=== PATIENT | female | born 1945 | race Caucasian/White ===

== ENCOUNTER 2024-10-04 10:45 | Inpatient (IN) | payer BC, OTHER ==
[~2024-10-04] VITALS: Ht 165.1 cm; Wt 88.5 kg
[2024-10-04 12:15] LABS: BASOPHILS % (AUTO) 0.3 % (0.0-2.0); EOSINOPHILS % (AUTO) 0.4 % (0.0-7.0); HEMATOCRIT 37.9 % (31.2-41.9); HEMOGLOBIN 12.5 g/dL (10.9-14.3); LYMPHOCYTES # (AUTO) 0.6 K/uL (0.8-4.8); LYMPHOCYTES % (AUTO) 5.5 % (20.5-51.5); MEAN CORPUSCULAR HEMOGLOBIN 28.2 uug (24.7-32.8); MEAN CORPUSCULAR HGB CONC 33 g/dL (32.3-35.6); MEAN CORPUSCULAR VOLUME 85.4 fL (75.5-95.3); MONOCYTES # (AUTO) 0.5 K/uL (0.1-1.30); MONOCYTES % (AUTO) 4.5 % (0.0-11.0); NEUTROPHILS # (AUTO) 10.2 K/uL (1.8-8.9); NEUTROPHILS % (AUTO) 89.3 % (38.5-71.5); PLATELET COUNT (AUTO) 185 K/uL (179-408); RED BLOOD CELL COUNT(AUTO) 4.43 MIL/uL (3.63-4.92); RED CELL DISTRIBUTION WIDTH 14.8 % (12.3-17.7); WHITE BLOOD COUNT (AUTO) 11.4 K/uL (3.8-11.8)
[2024-10-04] MEDS: IV NORMAL SALINE 1000 ML BAG IV ONE (12:20)
[2024-10-04 12:24] LABS: ALANINE AMINOTRANSFERASE 21 U/L (14-59); ALBUMIN 3.5 g/dL (3.4-5.0); ALKALINE PHOSPHATASE 101 U/L (50-136); ASPARTATE AMINOTRANSFERASE 16 U/L (15-37); BILIRUBIN,DIRECT 0.1 mg/dL (0.0-0.2); BILIRUBIN,TOTAL 0.6 mg/dL (0.2-1.0); CALCIUM 8.7 mg/dL (8.5-10.1); CARBON DIOXIDE 25 mmol/L (21-32); CHLORIDE 105 mmol/L (98-107); GLUCOSE 146 mg/dL (74-106); POTASSIUM 3.5 mmol/L (3.5-5.1); SODIUM SERUM 141 mmol/L (136-145); TOTAL PROTEIN, SERUM 7.8 g/dL (6.4-8.2); UREA NITROGEN, BLOOD 19 mg/dL (7-18)
[2024-10-04 12:28] LABS: THYROID STIMULATING HORMONE 51.434 mIU/mL (0.358-3.740)
[2024-10-04 12:30] LABS: LACTIC ACID 2.9 mmol/L (0.4-2.0)
[2024-10-04 12:38] LABS: DIFFERENTIAL COMMENT 1
[2024-10-04] MEDS ORDERED: HALOPERIDOL LACTATE 5 MG/1 ML VIAL ONE (12:40)
[2024-10-04] MEDS ORDERED: diphenhydrAMINE 50 MG/1 ML VIAL ONE (12:40)
[2024-10-04] MEDS ORDERED: LORAZEPAM 2 MG/1 ML VIAL ONE (12:41)
[2024-10-04] MEDS: LORAZEPAM 2 MG/1 ML VIAL IV ONE (12:46)
[2024-10-04] MEDS: HALOPERIDOL LACTATE 5 MG/1 ML VIAL IV ONE (12:46)
[2024-10-04] MEDS: diphenhydrAMINE 50 MG/1 ML VIAL IV ONE (12:46)
[2024-10-04] MEDS ORDERED: SWABABLE VALVE TRANSFER SET EA MC ONE (12:47)
[2024-10-04] MEDS ORDERED: IV NORMAL SALINE 250 ML IV ONE (12:47)
[2024-10-04] MEDS ORDERED: IOHEXOL 350 100 ML INFUS..BTL ONE (12:47)
[2024-10-04 12:54] LABS: *BILIRUBIN,URIN NEGATIVE (NEGATIVE); *BLOOD, URINE NEGATIVE (NEGATIVE); *CLARITY,URINE CLEAR (CLEAR); *COLOR,URINE YELLOW (YELLOW); *KETONES,URINE NEGATIVE (NEGATIVE); *PROTEIN,URINE NEGATIVE (NEGATIVE); *UROBILINOGEN,URINE 0.2 E.U./dl (NORMAL); LEUKOCYTE ESTERASE ,URINE NEGATIVE (NEGATIVE); NITRITE, URINE NEGATIVE (NEGATIVE); UGLUCOSE NEGATIVE (NEGATIVE)
[2024-10-04] MEDS ORDERED: HYDROCORTISONE SOD SUCCINATE 100 MG/2 ML VIAL IV ONE (14:50)
[2024-10-04] MEDS: HYDROCORTISONE SOD SUCCINATE 100 MG/2 ML VIAL IV ONE (15:00)
[2024-10-04] MEDS: CYANOCOBALAMIN 1000 MCG/ML VIAL IM ONE (15:00)
[2024-10-04] MEDS: LEVOTHYROXINE SODIUM 100 MCG VIAL IV ONE (15:21)
[2024-10-04] MEDS: IV D5/ 0.9% NACL 1,000 ML IV ONE (16:27)
[2024-10-04] MEDS ORDERED: ONDANSETRON 4 MG/2 ML VIAL IV PRN (16:30)
[2024-10-04] MEDS ORDERED: CEFTRIAXONE /D5W 50ML IVPB **ER PYXIS IV ONE (18:33)
[2024-10-04] MEDS: CEFTRIAXONE 1 G in IV DEXTROSE 5% 50 ML IV SCH (18:42)
[2024-10-04] MEDS ORDERED: AZITHROMYCIN 500MG/ D5W 250ML IVPB **ER PYXIS ONLY IV ONE (19:24)
[2024-10-04] MEDS: AZITHROMYCIN IV 500 MG in IV DEXTROSE 5% 250 ML IV SCH (19:33)
[2024-10-04] MEDS ORDERED: ACETAMINOPHEN 325 MG TABLET ONE (22:14)
[2024-10-04] MEDS ORDERED: DEXTROSE 50% 50 ML DISP.SYRIN IV PRN (22:30)
[2024-10-04] MEDS ORDERED: INSULIN REGULAR, HUMAN 1000 UNIT/10 ML VIAL ONE (22:40)
[2024-10-04] MEDS ORDERED: ENOXAPARIN SODIUM 40 MG/0.4 ML DISP.SYRIN SQ ONE (22:40)
[2024-10-04] MEDS: INSULIN REGULAR, HUMAN 1000 UNIT/10 ML VIAL SQ PRN (22:45)
[2024-10-04] MEDS: ENOXAPARIN SODIUM 40 MG/0.4 ML DISP.SYRIN SQ SCH (22:46)
[2024-10-05] MEDS ORDERED: LEVOTHYROXINE SODIUM 75 MCG TABLET ONE (07:01)
[2024-10-05] MEDS: LEVOTHYROXINE SODIUM 75 MCG TABLET PO SCH (07:09)
[2024-10-05] MEDS: BLOOD SUGAR DIAGNOSTIC 1 EACH STRIP VI SCH (07:36)
[2024-10-05 08:07] LABS: BASOPHILS % (AUTO) 0.4 % (0.0-2.0); EOSINOPHILS # (AUTO) 0.1 K/uL (0.0-0.7); EOSINOPHILS % (AUTO) 0.5 % (0.0-7.0); HEMATOCRIT 31.4 % (31.2-41.9); HEMOGLOBIN 10.5 g/dL (10.9-14.3); LYMPHOCYTES # (AUTO) 1.1 K/uL (0.8-4.8); LYMPHOCYTES % (AUTO) 10.4 % (20.5-51.5); MEAN CORPUSCULAR HGB CONC 34 g/dL (32.3-35.6); MEAN CORPUSCULAR VOLUME 86.5 fL (75.5-95.3); MONOCYTES # (AUTO) 0.9 K/uL (0.1-1.30); MONOCYTES % (AUTO) 8.3 % (0.0-11.0); NEUTROPHILS # (AUTO) 8.7 K/uL (1.8-8.9); NEUTROPHILS % (AUTO) 80.4 % (38.5-71.5); PLATELET COUNT (AUTO) 159 K/uL (179-408); RED BLOOD CELL COUNT(AUTO) 3.63 MIL/uL (3.63-4.92); RED CELL DISTRIBUTION WIDTH 14.8 % (12.3-17.7); WHITE BLOOD COUNT (AUTO) 10.8 K/uL (3.8-11.8)
[2024-10-05 08:15] LABS: DIFFERENTIAL COMMENT 1
[2024-10-05 08:46] LABS: CALCIUM 7.6 mg/dL (8.5-10.1); CARBON DIOXIDE 27 mmol/L (21-32); CHLORIDE 108 mmol/L (98-107); CREATININE 0.9 mg/dL (0.6-1.3); GLUCOSE 174 mg/dL (74-106); MAGNESIUM 1.8 mg/dL (1.8-2.4); PHOSPHOROUS 2.3 mg/dL (2.5-4.9); POTASSIUM 2.9 mmol/L (3.5-5.1); SODIUM SERUM 144 mmol/L (136-145); UREA NITROGEN, BLOOD 14 mg/dL (7-18)
[2024-10-05 08:48] LABS: THYROID STIMULATING HORMONE 24.621 mIU/mL (0.358-3.740)
[2024-10-05] MEDS ORDERED: POTASSIUM BICARBONATE/CIT AC 25 MEQ TABLET.EFF ONE (09:21)
[2024-10-05] MEDS ORDERED: HYDROCORTISONE SOD SUCCINATE 100 MG/2 ML VIAL IV ONE (09:21)
[2024-10-05] MEDS: HYDROCORTISONE SOD SUCCINATE 100 MG/2 ML VIAL IV SCH (09:26)
[2024-10-05] MEDS: POTASSIUM BICARBONATE/CIT AC 25 MEQ TABLET.EFF PO ONE (09:26)
[2024-10-05] MEDS ORDERED: LEVOTHYROXINE SODIUM 100 MCG VIAL IV ONE (09:29)
[2024-10-05] MEDS: LEVOTHYROXINE SODIUM 100 MCG VIAL IV SCH (09:43)
[2024-10-05] MEDS: NEUTRA PHOS PACKET PO ONE (17:20)
[2024-10-05] MEDS: BENZOCAINE/MENTH/CETYLPYRD LOZENGE MM PRN (17:20)
[2024-10-05 19:48] VITALS: BP 148/77; TEMP 97.9; O2SAT 96
[2024-10-05] MEDS: AZITHROMYCIN IV 500 MG in IV DEXTROSE 5% 250 ML IV SCH (20:36)
[2024-10-05] MEDS: IV NS 1000 ML 1,000 ML IV PRN (20:41)
[2024-10-06 01:18] VITALS: BP 157/83; TEMP 97.7; O2SAT 98
[2024-10-06] MEDS: ACETAMINOPHEN 325 MG TABLET PO PRN (04:08)
[2024-10-06 05:06] VITALS: BP 145/74; TEMP 97.4; O2SAT 93
[2024-10-06] MEDS: LEVOTHYROXINE SODIUM 125 MCG TABLET PO SCH (06:52)
[2024-10-06 07:01] LABS: CALCIUM 7.7 mg/dL (8.5-10.1); CARBON DIOXIDE 28 mmol/L (21-32); CHLORIDE 107 mmol/L (98-107); CREATININE 0.7 mg/dL (0.6-1.3); GLUCOSE 132 mg/dL (74-106); PHOSPHOROUS 2.9 mg/dL (2.5-4.9); POTASSIUM 3.2 mmol/L (3.5-5.1); SODIUM SERUM 143 mmol/L (136-145); UREA NITROGEN, BLOOD 15 mg/dL (7-18)
[2024-10-06 07:40] VITALS: BP 139/60; TEMP 98.5; O2SAT 99
[2024-10-06] MEDS: POTASSIUM CHLORIDE 20 MEQ TAB.PRT.SR PO ONE (10:45)
[2024-10-06 11:42] VITALS: BP 148/78; TEMP 97.9; O2SAT 96
[2024-10-06 15:32] VITALS: BP 139/76; TEMP 98.2; O2SAT 96
[2024-10-06 19:42] VITALS: BP 162/79; TEMP 98; O2SAT 96
[2024-10-06] MEDS: AZITHROMYCIN 250 MG TABLET PO SCH (20:47)
[2024-10-07 04:07] VITALS: O2SAT 96
[2024-10-07 07:41] VITALS: BP 164/88; TEMP 98; O2SAT 95
[2024-10-07 08:34] LABS: BASOPHILS # (AUTO) 0.1 K/UL (0.0-0.2); BASOPHILS % (AUTO) 1.2 % (0.0-2.0); EOSINOPHILS # (AUTO) 0.4 K/uL (0.0-0.7); EOSINOPHILS % (AUTO) 5.4 % (0.0-7.0); HEMATOCRIT 30.8 % (31.2-41.9); HEMOGLOBIN 10.4 g/dL (10.9-14.3); LYMPHOCYTES # (AUTO) 1.3 K/uL (0.8-4.8); LYMPHOCYTES % (AUTO) 17.8 % (20.5-51.5); MEAN CORPUSCULAR HEMOGLOBIN 28.7 uug (24.7-32.8); MEAN CORPUSCULAR HGB CONC 34 g/dL (32.3-35.6); MEAN CORPUSCULAR VOLUME 85.5 fL (75.5-95.3); MONOCYTES # (AUTO) 0.7 K/uL (0.1-1.30); MONOCYTES % (AUTO) 9.3 % (0.0-11.0); NEUTROPHILS # (AUTO) 4.7 K/uL (1.8-8.9); NEUTROPHILS % (AUTO) 66.3 % (38.5-71.5); PLATELET COUNT (AUTO) 178 K/uL (179-408); RED BLOOD CELL COUNT(AUTO) 3.61 MIL/uL (3.63-4.92); RED CELL DISTRIBUTION WIDTH 14.4 % (12.3-17.7); WHITE BLOOD COUNT (AUTO) 7.1 K/uL (3.8-11.8)
[2024-10-07 08:39] LABS: DIFFERENTIAL COMMENT 1
[2024-10-07 08:56] LABS: CALCIUM 8.2 mg/dL (8.5-10.1); CARBON DIOXIDE 28 mmol/L (21-32); CHLORIDE 111 mmol/L (98-107); CREATININE 0.8 mg/dL (0.6-1.3); GLUCOSE 129 mg/dL (74-106); MAGNESIUM 2.2 mg/dL (1.8-2.4); PHOSPHOROUS 2.9 mg/dL (2.5-4.9); POTASSIUM 3.7 mmol/L (3.5-5.1); SODIUM SERUM 146 mmol/L (136-145); UREA NITROGEN, BLOOD 20 mg/dL (7-18)
[2024-10-07 12:27] VITALS: BP 170/86; TEMP 97.3; O2SAT 97
[2024-10-07 12:30] VITALS: O2SAT 97
[2024-10-07] MEDS ORDERED: AZIT250T13 PO (12:43)
[2024-10-07] MEDS ORDERED: LEVO150T8 PO (12:43)
[2024-10-07] MEDS: hydrALAZINE HCL 20 MG/1 ML VIAL IV PRN (17:01)
[2024-10-07 19:58] VITALS: BP 184/84; TEMP 94.6; O2SAT 96
[2024-10-07 20:35] VITALS: BP 178/87; TEMP 98.3; O2SAT 95
[2024-10-07] MEDS: METOPROLOL TARTRATE 50 MG TABLET PO ONE (21:33)
[2024-10-08 03:32] VITALS: O2SAT 97
[2024-10-08 05:38] VITALS: BP 169/84; TEMP 98.1; O2SAT 96
[2024-10-08 08:00] VITALS: BP 165/83; TEMP 98.2; O2SAT 96
[2024-10-08] MEDS ORDERED: LOSA100T3 PO (12:00)
[2024-10-08] MEDS ORDERED: AMLO5TAB4 PO (12:00)
[2024-10-08 12:21] VITALS: BP 157/89
[2024-10-08] MEDS: AMLODIPINE 10 MG TABLET PO SCH (12:21)
[2024-10-08] MEDS: LOSARTAN POTASSIUM 50 MG TABLET PO SCH (12:21)
== END 2024-10-08 13:30 | DRG 643 ==
LOC: ER 10:45 → EDBD 10:45 → MEDSURG3 17:40 → TRANSITION 17:40 → UNDOADMIN 17:40 → TELE3 10-05 15:46 → MEDSURG3 10-06 08:56 → MEDSURG1 10-07 02:40
PROVIDERS: ADMIT Nurse Practitioner Acute Care; ATTEND Nurse Practitioner Acute Care
DX: E03.9 Hypothyroidism, unspecified (principal); G93.41 Metabolic encephalopathy; E87.20 Acidosis, unspecified; D68.59 Other primary thrombophilia; G91.2 (Idiopathic) normal pressure hydrocephalus; E86.0 Dehydration; E66.01 Morbid (severe) obesity due to excess calories; Z68.32 Body mass index [BMI] 32.0-32.9, adult; E87.6 Hypokalemia; E11.9 Type 2 diabetes mellitus without complications; M25.552 Pain in left hip
CPT/HCPCS: 36415; 70450; 71045; 72170; 73020; 73502; 82533; 83605; 83735; 84100; 84443; 84484; 85025; 85730; A4606; A4663; G0378; J0360; J0456; J0696; J1200; J1630; J1650; J1720; J1815; J2060; J7040; J7050; Q0144; Q9967